=== PATIENT | male | born 1950 | race Caucasian/White ===

== ENCOUNTER 2023-09-08 00:14 | Emergency (ER) | payer OTHER, MEDICAID ==
[2023-09-08] MEDS ORDERED: Acetaminophen 325 MG TAB ONE (01:19)
== END 2023-09-08 01:24 | disposition home or self-care (01) ==
LOC: ERS 00:14
DX: K59.00 Constipation, unspecified (principal); E11.9 Type 2 diabetes mellitus without complications; E78.00 Pure hypercholesterolemia, unspecified; F17.210 Nicotine dependence, cigarettes, uncomplicated; Z79.82 Long term (current) use of aspirin; Z79.899 Other long term (current) drug therapy; Z79.84 Long term (current) use of oral hypoglycemic drugs
CPT/HCPCS: 99283